=== PATIENT | female | born 1965 | race Caucasian/White ===

== ENCOUNTER 2017-08-14 11:01 | Outpatient (CLI) | payer OTHER ==
--- NOTE | 2017-08-14 13:46 | Diagnostic Imaging Report ---
Indication: Hepatitis C Technique: Mariano-scale and duplex images of the upper abdomen were obtained Comparison: 08/04/2015 Findings: Gallbladder is unremarkable, without stones, wall thickening, nor pericholecystic fluid. Sonographic Shah's sign is negative. Common bile duct measures 5 mm in diameter. No intrahepatic biliary ductal dilatation. Liver demonstrates normal echogenicity, no focal abnormality. No hepatic surface nodularity demonstrated. Portal vein and hepatic veins are patent. Pancreas is unremarkable. Spleen is unremarkable. Left kidney measures 12.4 cm in length. Right kidney measures 11.8 cm length. Both kidneys demonstrate normal echogenicity. There is no hydronephrosis. No focal abnormality . Non-aneurysmal abdominal aorta . Unremarkable inferior vena cava. No significant interim change Impression: Negative
== END 2017-08-14 13:01 | disposition home or self-care (01) ==
LOC: ULS 11:01
DX: B19.20 Unspecified viral hepatitis C without hepatic coma (principal)
CPT/HCPCS: 76700